=== PATIENT | male | born 1945 | race Caucasian/White ===

== ENCOUNTER 2022-01-24 12:15 | Inpatient (IN) | payer MEDICARE, OTHER ==
[~2022-01-24] VITALS: Ht 180.3 cm; Wt 87.0 kg
[~2022-01-24 12:15] MED LIST: AMLO10TAB; ASPI81TA83; FISH500C; LISI40TA; SIMV20TA2
[2022-01-24] MEDS ORDERED: LIDOCAINE 2% 5ML JELLY UROJET TOP ONE (12:45)
[2022-01-24] MEDS ORDERED: NS 2,100 ML in IV 1 EA IV ONE (12:45)
[2022-01-24 13:19] LABS: VENOUS BASE EXCESS 2.5 (-2.0-2.0); VENOUS HCO3 27.3 MEQ/L (23.0-27.0); VENOUS O2 SATURATION 86.2 % (60.0-80.0); VENOUS PARTIAL PRESSURE CO2 42.8 mmHg (38.0-50.0); VENOUS PARTIAL PRESSURE O2 49.6 mmHg (30.0-50.0); VENOUS PH 7.423 UNITS (7.330-7.430); VENOUS STANDARD HCO3 26.4 MEQ/L; VENOUS TOTAL CO2 28.6 MEQ/L (24.0-28.0)
[2022-01-24 13:29] LABS: BASO % 0.2 % (0.0-1.0); HEMATOCRIT 43.7 % (42.0-52.0); HEMOGLOBIN 14.3 g/dl (13.5-17.5); LYMPH # 1.4 10^3/uL (1.5-5.0); LYMPH % 15.7 % (24.0-44.0); MEAN CORPUSCULAR HEMOGLOBIN 28.9 pg (27.0-33.0); MEAN CORPUSCULAR HGB CONC 32.7 g/dl (32.0-36.5); MEAN CORPUSCULAR VOLUME 88.3 fl (80.0-96.0); MONO % 10.7 % (2.0-8.0); NEUTROPHILS # 6.5 10^3/uL (1.5-8.5); NEUTROPHILS % 73.2 % (36.0-66.0); PLATELET COUNT, AUTOMATED 213 10^3/uL (150-450); RED BLOOD COUNT 4.95 10^6/uL (4.30-6.10); WHITE BLOOD COUNT 8.9 10^3/uL (4.0-10.0)
[2022-01-24 13:53] LABS: OSMOLALITY SERUM 287 MOSM/KG (280-301)
[2022-01-24 14:02] LABS: CK-MB VALUE MASS 1.1 NG/ML (<3.6); MB/CK RELATIVE INDEX 0.43 (< OR =4)
[2022-01-24 14:15] LABS: ALBUMIN 3.4 GM/DL (3.2-5.2); ALT/SGPT 23 U/L (12-78); BILIRUBIN,DIRECT 0.3 MG/DL (0.0-0.2); BILIRUBIN,TOTAL 1.1 MG/DL (0.2-1.0); BLOOD UREA NITROGEN 17 MG/DL (7-18); CALCIUM LEVEL 9.2 MG/DL (8.8-10.2); CARBON DIOXIDE LEVEL 24 MEQ/L (21-32); CHLORIDE LEVEL 106 MEQ/L (98-107); CREATININE FOR GFR 0.83 MG/DL (0.70-1.30); GLOMERULAR FILTRATION RATE > 60.0 (>42); GLUCOSE, FASTING 117 MG/DL (70-100); POTASSIUM SERUM 3.7 MEQ/L (3.5-5.1); SODIUM LEVEL 139 MEQ/L (136-145); TOTAL PROTEIN 6.5 GM/DL (6.4-8.2)
[2022-01-24 14:16] LABS: RSV AMPLIFICATION NEGATIVE (NEGATIVE)
[2022-01-24] MEDS ORDERED: LIDOCAINE W/EPINEPHRINE 1% 20ML VIAL SC ONE (14:55)
[2022-01-24 16:22] LABS: BACTERIA, URINE NONE SEEN; MUCUS, URINE LARGE AMOUNT (NEGATIVE); SQUAMOUS EPITHELIAL CELL URINE SMALL AMOUNT /hpf (SMALL AMT)
[2022-01-24 16:36] LABS: CRYSTALS, BODY FLUID CA PYROPHOSPHATE (NONE SEEN); SOURCE, BODY FLUID CRYSTALS LFT KNEE
[2022-01-24 16:39] LABS: SOURCE, BODY FLUID URIC ACID LFT KNEE; URIC ACID, BODY FLUID 4.2 MG/DL (NOT ESTABLISHED)
[2022-01-24 16:55] LABS: SOURCE, BODY FLUID LFT KNEE; SYNOVIAL FLUID COLOR YELLOW (COLORLESS)
[2022-01-24] MEDS ORDERED: KETOROLAC 30 MG/ML 1ML VIAL IV ONE (17:55)
[2022-01-24] MEDS ORDERED: DONE10TA90 PO (19:29)
[2022-01-24] MEDS ORDERED: ASPI-161 PO (19:29)
[2022-01-24] MEDS ORDERED: RISP-8 PO (19:29)
[2022-01-24] MEDS ORDERED: HOME MED LIST COMPLETE! XX SCH (19:30)
[2022-01-24] MEDS: DOCUSATE SODIUM 100MG CAPSULE PO SCH (21:00)
[2022-01-24] MEDS: ASPIRIN 81MG ENTERIC TABLET PO SCH (21:00)
[2022-01-24 22:50] VITALS: BP 152/74
[2022-01-25] MEDS ORDERED: UNRESOLVED CLARIFICATION ENTRY XX SCH (00:01)
[2022-01-25] MEDS: DONEPEZIL 5 MG TAB PO SCH ×2 (00:28→20:28)
[2022-01-25] MEDS: risperiDONE 1 MG TAB PO SCH ×2 (00:28→20:27)
[2022-01-25] MEDS: ASPIRIN 81MG ENTERIC TABLET PO SCH ×2 (00:28→20:27)
[2022-01-25] MEDS ORDERED: KETOROLAC 30 MG/ML 1ML VIAL IV SCH (02:00)
[2022-01-25 06:00] VITALS: BP 145/72
[2022-01-25 06:17] LABS: HEMATOCRIT 40.3 % (42.0-52.0); MEAN CORPUSCULAR HEMOGLOBIN 29.1 pg (27.0-33.0); MEAN CORPUSCULAR HGB CONC 32.3 g/dl (32.0-36.5); MEAN CORPUSCULAR VOLUME 90.2 fl (80.0-96.0); PLATELET COUNT, AUTOMATED 181 10^3/uL (150-450); RED BLOOD COUNT 4.47 10^6/uL (4.30-6.10); WHITE BLOOD COUNT 8.4 10^3/uL (4.0-10.0)
[2022-01-25 06:41] LABS: INR 1.24
[2022-01-25 06:42] LABS: PARTIAL THROMBOPLASTIN TIME 38.5 SECONDS (25.9-37.0)
[2022-01-25 06:53] LABS: BLOOD UREA NITROGEN 21 MG/DL (7-18); CALCIUM LEVEL 8.6 MG/DL (8.8-10.2); CARBON DIOXIDE LEVEL 26 MEQ/L (21-32); CHLORIDE LEVEL 108 MEQ/L (98-107); CREATININE FOR GFR 0.82 MG/DL (0.70-1.30); GLOMERULAR FILTRATION RATE > 60.0 (>42); GLUCOSE, FASTING 109 MG/DL (70-100); MAGNESIUM LEVEL 2.1 MG/DL (1.8-2.4); POTASSIUM SERUM 3.9 MEQ/L (3.5-5.1); SODIUM LEVEL 139 MEQ/L (136-145)
[2022-01-25 07:04] LABS: ERYTHROCYTE SEDIMENTATION RATE 23 mm/hr (0-20)
[2022-01-25] MEDS: DOCUSATE SODIUM 100MG CAPSULE PO SCH ×2 (09:00→20:36)
[2022-01-25] MEDS: predniSONE 20 MG TAB PO SCH ×2 (09:00→20:27)
[2022-01-25] MEDS: ENOXAPARIN 40MG/0.4ML SYRINGE (J1650 PER 10MG) SC SCH (10:00)
[2022-01-25] MEDS ORDERED: NS 1,000 ML IV SCH (10:15)
[2022-01-25 14:30] VITALS: BP 118/74
[2022-01-25 21:51] VITALS: BP 119/74
[2022-01-26] MEDS ORDERED: **NOTE PATIENT COMMENT** MISC XX ONE (03:00)
[2022-01-26 06:00] VITALS: BP 122/73
[2022-01-26 07:00] LABS: HEMATOCRIT 38.3 % (42.0-52.0); HEMOGLOBIN 12.6 g/dl (13.5-17.5); MEAN CORPUSCULAR HEMOGLOBIN 29.6 pg (27.0-33.0); MEAN CORPUSCULAR HGB CONC 32.9 g/dl (32.0-36.5); MEAN CORPUSCULAR VOLUME 89.9 fl (80.0-96.0); PLATELET COUNT, AUTOMATED 186 10^3/uL (150-450); RED BLOOD COUNT 4.26 10^6/uL (4.30-6.10); WHITE BLOOD COUNT 6.4 10^3/uL (4.0-10.0)
[2022-01-26 07:55] LABS: ALBUMIN 2.7 GM/DL (3.2-5.2); ALT/SGPT 27 U/L (12-78); BILIRUBIN,TOTAL 0.5 MG/DL (0.2-1.0); BLOOD UREA NITROGEN 25 MG/DL (7-18); CALCIUM LEVEL 8.7 MG/DL (8.8-10.2); CARBON DIOXIDE LEVEL 25 MEQ/L (21-32); CHLORIDE LEVEL 109 MEQ/L (98-107); CREATININE FOR GFR 0.71 MG/DL (0.70-1.30); GLOMERULAR FILTRATION RATE > 60.0 (>42); GLUCOSE, FASTING 132 MG/DL (70-100); POTASSIUM SERUM 4.3 MEQ/L (3.5-5.1); SODIUM LEVEL 141 MEQ/L (136-145); TOTAL PROTEIN 5.5 GM/DL (6.4-8.2)
[2022-01-26] MEDS: predniSONE 20 MG TAB PO SCH ×2 (08:08→20:26)
[2022-01-26] MEDS: DOCUSATE SODIUM 100MG CAPSULE PO SCH ×2 (08:08→20:26)
[2022-01-26] MEDS: ENOXAPARIN 40MG/0.4ML SYRINGE (J1650 PER 10MG) SC SCH (08:08)
[2022-01-26 14:00] VITALS: BP 116/70
[2022-01-26] MEDS ORDERED: LIDOCAINE 5% (LIDODERM) PATCH TD ONE (15:00)
[2022-01-26] MEDS: ACETAMINOPHEN TAB 650MG DOSE (2X325MG) PO PRN (15:04)
[2022-01-26] MEDS: risperiDONE 1 MG TAB PO SCH (20:26)
[2022-01-26] MEDS: ASPIRIN 81MG ENTERIC TABLET PO SCH (20:26)
[2022-01-26] MEDS: DONEPEZIL 5 MG TAB PO SCH (20:26)
[2022-01-26 21:56] VITALS: BP_SYST 123; BP_DIAS 4; BP_DIAS 84
[2022-01-27] MEDS ORDERED: **NOTE PATIENT COMMENT** MISC XX ONE (03:00)
[2022-01-27 05:32] VITALS: BP 134/76
[2022-01-27 05:37] LABS: HEMATOCRIT 39.3 % (42.0-52.0); HEMOGLOBIN 12.8 g/dl (13.5-17.5); MEAN CORPUSCULAR HEMOGLOBIN 29.2 pg (27.0-33.0); MEAN CORPUSCULAR HGB CONC 32.6 g/dl (32.0-36.5); MEAN CORPUSCULAR VOLUME 89.7 fl (80.0-96.0); PLATELET COUNT, AUTOMATED 210 10^3/uL (150-450); RED BLOOD COUNT 4.38 10^6/uL (4.30-6.10); WHITE BLOOD COUNT 5.9 10^3/uL (4.0-10.0)
[2022-01-27 06:29] LABS: ALBUMIN 2.6 GM/DL (3.2-5.2); ALT/SGPT 63 U/L (12-78); BILIRUBIN,TOTAL 0.3 MG/DL (0.2-1.0); BLOOD UREA NITROGEN 23 MG/DL (7-18); CALCIUM LEVEL 8.5 MG/DL (8.8-10.2); CARBON DIOXIDE LEVEL 26 MEQ/L (21-32); CHLORIDE LEVEL 109 MEQ/L (98-107); CREATININE FOR GFR 0.68 MG/DL (0.70-1.30); GLOMERULAR FILTRATION RATE > 60.0 (>42); GLUCOSE, FASTING 157 MG/DL (70-100); POTASSIUM SERUM 4.7 MEQ/L (3.5-5.1); SODIUM LEVEL 141 MEQ/L (136-145); TOTAL PROTEIN 5.7 GM/DL (6.4-8.2)
[2022-01-27] MEDS: ENOXAPARIN 40MG/0.4ML SYRINGE (J1650 PER 10MG) SC SCH (09:55)
[2022-01-27] MEDS: DOCUSATE SODIUM 100MG CAPSULE PO SCH ×2 (09:55→20:27)
[2022-01-27] MEDS: predniSONE 20 MG TAB PO SCH ×2 (09:55→20:27)
[2022-01-27 14:00] VITALS: BP 135/103
[2022-01-27] MEDS: DONEPEZIL 5 MG TAB PO SCH (20:27)
[2022-01-27] MEDS: ACETAMINOPHEN TAB 650MG DOSE (2X325MG) PO PRN (20:27)
[2022-01-27] MEDS: ASPIRIN 81MG ENTERIC TABLET PO SCH (20:27)
[2022-01-27] MEDS: risperiDONE 1 MG TAB PO SCH (20:27)
[2022-01-28] VITALS: BP 148/98
[2022-01-28] MEDS ORDERED: HALOPERIDOL 5MG/ML VIAL (J1630 PER 1) IV ONE (02:05)
[2022-01-28 05:53] LABS: HEMATOCRIT 37.5 % (42.0-52.0); HEMOGLOBIN 12.7 g/dl (13.5-17.5); MEAN CORPUSCULAR HGB CONC 33.9 g/dl (32.0-36.5); MEAN CORPUSCULAR VOLUME 88.4 fl (80.0-96.0); PLATELET COUNT, AUTOMATED 246 10^3/uL (150-450); RED BLOOD COUNT 4.24 10^6/uL (4.30-6.10)
[2022-01-28 06:00] VITALS: BP 147/98
[2022-01-28] MEDS ORDERED: ACET1TAB55 PO (07:08)
[2022-01-28] MEDS ORDERED: COLA100C5 PO (07:08)
[2022-01-28 07:11] LABS: ALBUMIN 2.8 GM/DL (3.2-5.2); ALT/SGPT 60 U/L (12-78); BILIRUBIN,TOTAL 0.5 MG/DL (0.2-1.0); BLOOD UREA NITROGEN 14 MG/DL (7-18); CALCIUM LEVEL 8.6 MG/DL (8.8-10.2); CARBON DIOXIDE LEVEL 28 MEQ/L (21-32); CHLORIDE LEVEL 106 MEQ/L (98-107); CREATININE FOR GFR 0.58 MG/DL (0.70-1.30); GLOMERULAR FILTRATION RATE > 60.0 (>42); GLUCOSE, FASTING 129 MG/DL (70-100); POTASSIUM SERUM 3.8 MEQ/L (3.5-5.1); SODIUM LEVEL 140 MEQ/L (136-145); TOTAL PROTEIN 5.5 GM/DL (6.4-8.2)
[2022-01-28] MEDS ORDERED: PRED20TA PO (07:11)
[2022-01-28] MEDS: DOCUSATE SODIUM 100MG CAPSULE PO SCH ×2 (09:00→21:00)
[2022-01-28] MEDS: ENOXAPARIN 40MG/0.4ML SYRINGE (J1650 PER 10MG) SC SCH (09:11)
[2022-01-28] MEDS: predniSONE 20 MG TAB PO SCH (09:11)
[2022-01-28 14:00] VITALS: BP 141/82
[2022-01-28] MEDS: DONEPEZIL 5 MG TAB PO SCH (20:25)
[2022-01-28] MEDS: risperiDONE 1 MG TAB PO SCH (20:25)
[2022-01-28] MEDS: ACETAMINOPHEN TAB 650MG DOSE (2X325MG) PO PRN (20:25)
[2022-01-28] MEDS: ASPIRIN 81MG ENTERIC TABLET PO SCH (20:25)
[2022-01-28 22:00] VITALS: BP 148/95
[2022-01-29 06:00] VITALS: BP 149/93
[2022-01-29 06:27] LABS: HEMATOCRIT 41.8 % (42.0-52.0); HEMOGLOBIN 13.6 g/dl (13.5-17.5); MEAN CORPUSCULAR HEMOGLOBIN 28.9 pg (27.0-33.0); MEAN CORPUSCULAR HGB CONC 32.5 g/dl (32.0-36.5); MEAN CORPUSCULAR VOLUME 88.9 fl (80.0-96.0); PLATELET COUNT, AUTOMATED 272 10^3/uL (150-450)
[2022-01-29 07:03] LABS: ALT/SGPT 52 U/L (12-78); BILIRUBIN,TOTAL 0.6 MG/DL (0.2-1.0); BLOOD UREA NITROGEN 12 MG/DL (7-18); CALCIUM LEVEL 9.1 MG/DL (8.8-10.2); CARBON DIOXIDE LEVEL 32 MEQ/L (21-32); CHLORIDE LEVEL 104 MEQ/L (98-107); CREATININE FOR GFR 0.75 MG/DL (0.70-1.30); GLOMERULAR FILTRATION RATE > 60.0 (>42); GLUCOSE, FASTING 108 MG/DL (70-100); POTASSIUM SERUM 3.7 MEQ/L (3.5-5.1); SODIUM LEVEL 141 MEQ/L (136-145); TOTAL PROTEIN 5.8 GM/DL (6.4-8.2)
[2022-01-29] MEDS: ENOXAPARIN 40MG/0.4ML SYRINGE (J1650 PER 10MG) SC SCH (09:43)
[2022-01-29] MEDS: DOCUSATE SODIUM 100MG CAPSULE PO SCH ×2 (09:43→20:35)
[2022-01-29] MEDS: predniSONE 20 MG TAB PO SCH (09:43)
[2022-01-29] MEDS: ACETAMINOPHEN TAB 650MG DOSE (2X325MG) PO PRN (20:34)
[2022-01-29] MEDS: ASPIRIN 81MG ENTERIC TABLET PO SCH (20:34)
[2022-01-29] MEDS: risperiDONE 1 MG TAB PO SCH (20:35)
[2022-01-29] MEDS: DONEPEZIL 5 MG TAB PO SCH (20:35)
[2022-01-30 06:00] VITALS: BP 127/64
[2022-01-30] MEDS: predniSONE 20 MG TAB PO SCH (09:50)
[2022-01-30] MEDS: DOCUSATE SODIUM 100MG CAPSULE PO SCH (09:50)
[2022-01-30] MEDS: ENOXAPARIN 40MG/0.4ML SYRINGE (J1650 PER 10MG) SC SCH (09:50)
== END 2022-01-30 18:45 | disposition home health service (06) | DRG 553 ==
LOC: M ED 12:15 → EDBD 12:15 → M ED INP 19:16 → ENRESERV 21:39 → M MS5PR 23:27
PROVIDERS: ADMIT Family Medicine; ATTEND Family Medicine
PROC: 0S9D3ZZ Drainage of Left Knee Joint, Percutaneous Approach (ICD-10-PCS; principal; 2022-01-25)
DX: M10.9 Gout, unspecified (principal); G93.41 Metabolic encephalopathy; F02.81 Dementia in other diseases classified elsewhere, unspecified severity, with behavioral disturbance; R63.0 Anorexia; E78.5 Hyperlipidemia, unspecified; I10 Essential (primary) hypertension; G30.9 Alzheimer's disease, unspecified; Z66 Do not resuscitate; Z79.82 Long term (current) use of aspirin; Z79.899 Other long term (current) drug therapy

== ENCOUNTER 2022-06-27 14:53 | Inpatient (IN) | payer MEDICARE, OTHER ==
[~2022-06-27 14:53] MED LIST changes: +ACET1TAB55 PO; +ASPI-161 PO; +COLA100C5 PO; +DONE10TA90 PO; +PRED20TA PO; +RISP-8 PO
[2022-06-27 17:22] LABS: BASO % 0.4 % (0.0-1.0); EOS % 0.4 % (0.0-3.0); HEMATOCRIT 40.6 % (42.0-52.0); HEMOGLOBIN 13.1 g/dl (13.5-17.5); LYMPH # 2.3 10^3/uL (1.5-5.0); LYMPH % 20.4 % (24.0-44.0); MEAN CORPUSCULAR HEMOGLOBIN 28.8 pg (27.0-33.0); MEAN CORPUSCULAR HGB CONC 32.3 g/dl (32.0-36.5); MEAN CORPUSCULAR VOLUME 89.2 fl (80.0-96.0); MONO # 0.9 10^3/uL (0.0-0.8); NEUTROPHILS % 70.4 % (36.0-66.0); PLATELET COUNT, AUTOMATED 438 10^3/uL (150-450); RED BLOOD COUNT 4.55 10^6/uL (4.30-6.10); WHITE BLOOD COUNT 11.3 10^3/uL (4.0-10.0)
[2022-06-27 17:43] LABS: BLOOD UREA NITROGEN 12 MG/DL (9-23); CALCIUM LEVEL 8.6 MG/DL (8.3-10.6); CARBON DIOXIDE LEVEL 29 MMOL/L (20-31); CHLORIDE LEVEL 105 MMOL/L (98-107); CREATININE FOR GFR 0.54 MG/DL (0.70-1.30); GLOMERULAR FILTRATION RATE > 60.0 (>42); GLUCOSE, FASTING 105 MG/DL (74-106); POTASSIUM SERUM 4.5 MMOL/L (3.5-5.1); SODIUM LEVEL 141 MMOL/L (136-145)
[2022-06-27] MEDS ORDERED: DOCU100C16 PO (18:44)
[2022-06-27] MEDS ORDERED: RAMELTEON 8 MG TAB (ROZEREM) PO PRN (18:45)
[2022-06-27] MEDS ORDERED: NS 500 ML IV ONE (18:45)
[2022-06-27] MEDS ORDERED: HOME MED LIST COMPLETE! XX SCH (18:45)
[2022-06-27] MEDS ORDERED: PANTOPRAZOLE 40MG VIAL IV ONE (19:00)
[2022-06-27 19:02] LABS: RSV AMPLIFICATION NEGATIVE (NEGATIVE)
[2022-06-27] MEDS: NS 1,000 ML IV SCH (20:01)
[2022-06-27 23:09] VITALS: BP 102/50
[2022-06-28] VITALS (7 sets, daily range): BP systolic 130–140; BP diastolic 82–95
[2022-06-28 00:53] LABS: HEMATOCRIT 38.2 % (42.0-52.0); HEMOGLOBIN 12.3 g/dl (13.5-17.5)
[2022-06-28 01:17] LABS: ERYTHROCYTE SEDIMENTATION RATE 27 mm/hr (0-20)
[2022-06-28 05:56] LABS: BASO # 0.1 10^3/uL (0.0-0.2); BASO % 0.5 % (0.0-1.0); EOS % 0.3 % (0.0-3.0); HEMATOCRIT 36.5 % (42.0-52.0); HEMOGLOBIN 11.8 g/dl (13.5-17.5); LYMPH # 1.5 10^3/uL (1.5-5.0); LYMPH % 15.5 % (24.0-44.0); MEAN CORPUSCULAR HEMOGLOBIN 28.7 pg (27.0-33.0); MEAN CORPUSCULAR HGB CONC 32.3 g/dl (32.0-36.5); MEAN CORPUSCULAR VOLUME 88.8 fl (80.0-96.0); MONO # 0.7 10^3/uL (0.0-0.8); MONO % 7.4 % (2.0-8.0); NEUTROPHILS # 7.5 10^3/uL (1.5-8.5); NEUTROPHILS % 75.9 % (36.0-66.0); PLATELET COUNT, AUTOMATED 361 10^3/uL (150-450); RED BLOOD COUNT 4.11 10^6/uL (4.30-6.10); WHITE BLOOD COUNT 9.9 10^3/uL (4.0-10.0)
[2022-06-28 06:26] LABS: ALBUMIN 2.6 G/DL (3.2-5.2); ALKALINE PHOSPHATASE 95 U/L (46-116); ALT/SGPT 17 U/L (7.0-40); AST/SGOT 18 U/L (<34); BILIRUBIN,TOTAL 0.7 MG/DL (0.3-1.2); BLOOD UREA NITROGEN 15 MG/DL (9-23); CALCIUM LEVEL 8.9 MG/DL (8.3-10.6); CARBON DIOXIDE LEVEL 26 MMOL/L (20-31); CHLORIDE LEVEL 107 MMOL/L (98-107); CREATININE FOR GFR 0.57 MG/DL (0.70-1.30); GLOMERULAR FILTRATION RATE > 60.0 (>42); GLUCOSE, FASTING 104 MG/DL (74-106); MAGNESIUM LEVEL 1.8 MG/DL (1.8-2.4); POTASSIUM SERUM 4.5 MMOL/L (3.5-5.1); SODIUM LEVEL 143 MMOL/L (136-145); TOTAL PROTEIN 5.1 G/DL (5.7-8.2)
[2022-06-28] MEDS: NS 1,000 ML IV SCH (08:07)
[2022-06-28] MEDS ORDERED: DEXTROSE 50% 50ML SYRINGE IV PRN (11:20)
[2022-06-28] MEDS ORDERED: GLUCOSE 4GM CHEW TABLET PO PRN (11:20)
[2022-06-28] MEDS ORDERED: GLUCAGON INJ 1MG VIAL SC PRN (11:20)
[2022-06-28] MEDS ORDERED: D5W/0.45% SODIUM CHLORIDE 1,000 ML IV ONE (11:20)
[2022-06-28 11:37] LABS: HEMATOCRIT 39.6 % (42.0-52.0); HEMOGLOBIN 12.4 g/dl (13.5-17.5)
[2022-06-28 11:49] LABS: IRON (FE) 15 UG/DL (65-175); PERCENT SATURATION 7.2 % (19.7-50.0); TOTAL IRON BINDING CAPACITY 207 UG/DL (250-425)
[2022-06-28 11:51] LABS: FERRITIN 131.5 NG/ML (10.5-307.3)
[2022-06-28 11:56] LABS: FOLATE 22.47 NG/ML (>5.4); VITAMIN B12 LEVEL 249 PG/ML (211-911)
[2022-06-28 17:33] LABS: HEMATOCRIT 33.9 % (42.0-52.0); HEMOGLOBIN 11.1 g/dl (13.5-17.5)
[2022-06-28] MEDS ORDERED: IRON SUCROSE 200 MG in NS 100 ML IV ONE (18:00)
[2022-06-29 01:13] LABS: HEMATOCRIT 31.9 % (42.0-52.0); HEMOGLOBIN 10.3 g/dl (13.5-17.5)
[2022-06-29 06:00] VITALS: BP 135/81
[2022-06-29 06:32] LABS: HEMATOCRIT 31.5 % (42.0-52.0); HEMOGLOBIN 10.3 g/dl (13.5-17.5); MEAN CORPUSCULAR HEMOGLOBIN 29.1 pg (27.0-33.0); MEAN CORPUSCULAR HGB CONC 32.7 g/dl (32.0-36.5); PLATELET COUNT, AUTOMATED 320 10^3/uL (150-450); RED BLOOD COUNT 3.54 10^6/uL (4.30-6.10)
[2022-06-29 06:59] LABS: BLOOD UREA NITROGEN 13 MG/DL (9-23); CALCIUM LEVEL 8.3 MG/DL (8.3-10.6); CARBON DIOXIDE LEVEL 27 MMOL/L (20-31); CHLORIDE LEVEL 108 MMOL/L (98-107); CREATININE FOR GFR 0.52 MG/DL (0.70-1.30); GLOMERULAR FILTRATION RATE > 60.0 (>42); GLUCOSE, FASTING 108 MG/DL (74-106); MAGNESIUM LEVEL 1.7 MG/DL (1.8-2.4); PHOSPHORUS LEVEL 2.8 MG/DL (2.4-5.1); POTASSIUM SERUM 3.4 MMOL/L (3.5-5.1); SODIUM LEVEL 142 MMOL/L (136-145)
[2022-06-29] MEDS ORDERED: FERR325T3 PO (09:43)
[2022-06-29] MEDS: MAG SULF 1GM/100ML (MAG RUN) 1 GM in IV 1 EA IV SCH ×2 (10:05→11:13)
[2022-06-29] MEDS ORDERED: POTASSIUM CHLORIDE 10% LIQ 20MEQ/15ML UDC PO ONE (11:15)
[2022-06-29] MEDS ORDERED: KCL 10MEQ/100ML SWI (KRUN) 10 MEQ in IV 1 EA IV SCH (12:00)
[2022-06-29] MEDS ORDERED: IRON SUCROSE 200 MG in NS 100 ML IV ONE ×2 (13:00→16:00)
[2022-06-29 14:00] VITALS: BP 133/80
== END 2022-06-29 15:10 | disposition home or self-care (01) | DRG 378 ==
LOC: EDBD 14:53 → M ED 14:53 → M ED INP 18:45 → ENRESERV 20:56 → M MSPAV 23:09
PROVIDERS: ADMIT Family Medicine; ATTEND Internal Medicine
DX: K62.5 Hemorrhage of anus and rectum (principal); F02.818 Dementia in other diseases classified elsewhere, unspecified severity, with other behavioral disturbance; D62 Acute posthemorrhagic anemia; I10 Essential (primary) hypertension; E78.5 Hyperlipidemia, unspecified; Z74.01 Bed confinement status; G30.9 Alzheimer's disease, unspecified; M10.9 Gout, unspecified; K64.8 Other hemorrhoids; R13.10 Dysphagia, unspecified; Z66 Do not resuscitate

== ENCOUNTER 2022-07-01 14:02 | Inpatient (IN) | payer MEDICARE, OTHER ==
[~2022-07-01] VITALS: Ht 177.8 cm; Wt 60.4 kg
[~2022-07-01 14:02] MED LIST changes: +DOCU100C16 PO; +FERR325T3 PO
[2022-07-01 14:12] VITALS: BP 71/44
[2022-07-01] MEDS ORDERED: BISACODYL 10MG SUPP PR PRN (15:10)
[2022-07-01] MEDS ORDERED: ONDANSETRON 4MG 2ML VIAL IV PRN (15:10)
[2022-07-01] MEDS ORDERED: SCOPOLAMINE 1MG TRANSDERMAL PATCH TOP PRN (15:10)
[2022-07-01] MEDS ORDERED: HYOSCYAMINE SULFATE 0.125 MG SUBL TABLET PO PRN (15:10)
[2022-07-01] MEDS ORDERED: ACETAMINOPHEN TAB 650MG DOSE (2X325MG) PO PRN (15:10)
[2022-07-01] MEDS: MORPHINE 10MG/0.5ML ORAL CONCENTRATE SOLUTION U/D SL PRN (18:20)
[2022-07-01] MEDS: LORazepam 1 MG TAB PO PRN (18:21)
[2022-07-02] MEDS: LORazepam 1 MG TAB PO PRN (11:28)
[2022-07-02] MEDS: MORPHINE 10MG/0.5ML ORAL CONCENTRATE SOLUTION U/D SL PRN (11:28)
[2022-07-02] MEDS: MORPHINE 2 MG/ML 1ML VIAL IV PRN ×2 (12:03→15:17)
[2022-07-02] MEDS ORDERED: LORazepam 2 MG/ML 1ML VIAL IV PRN ×2 (12:05→14:40)
== END 2022-07-02 23:23 | disposition expired | DRG 951 ==
LOC: M ED 14:02 → M ED INP 15:06 → ENRESERV 16:46 → M MS5PR 17:05
PROVIDERS: ADMIT Family Medicine; ATTEND Family Medicine
DX: Z51.5 Encounter for palliative care (principal); J96.01 Acute respiratory failure with hypoxia; G93.41 Metabolic encephalopathy; E43 Unspecified severe protein-calorie malnutrition; Z66 Do not resuscitate; I10 Essential (primary) hypertension; G30.9 Alzheimer's disease, unspecified; F02.80 Dementia in other diseases classified elsewhere, unspecified severity, without behavioral disturbance, psychotic disturbance, mood disturbance, and anxiety; E78.5 Hyperlipidemia, unspecified; R57.1 Hypovolemic shock; Z79.899 Other long term (current) drug therapy